=== PATIENT | female | born 1985 | race Asian ===

== ENCOUNTER 2017-11-08 14:06 | Emergency (ER) | payer OTHER ==
[~2017-11-08] VITALS: Ht 154.9 cm; Wt 51.3 kg
[~2017-11-08 14:06] MED LIST: MULT-506 PO
[2017-11-08 14:07] VITALS: TEMP 36.5; O2SAT 100; Ht 154.9 cm; Wt 51.3 kg
[2017-11-08] MEDS ORDERED: SODIUM CHLORIDE 0.9% 1000ML 1,000 ML IV STA (14:20)
[2017-11-08] MEDS ORDERED: KETOROLAC TROMETHAMINE 30 MG/ML VIAL IV STA (14:20)
[2017-11-08 14:29] LABS: BASO % 0.6 %; BASO ABS # 0.04 K/uL (0-0.2); EOS % 1.4 %; HEMOGLOBIN 14.6 g/dL (12.0-16.0); IG# 0.02 K/uL (0.00-0.02); LYMPH % 42.9 %; LYMPH ABS # 3.09 K/uL (1.2-3.4); MEAN CELL VOLUME 93.5 fL (80-100); MEAN CORPUSCULAR HEMOGLOBIN 32.5 pg (25-34); MEAN CORPUSCULAR HGB CONC 34.8 g/dl (32-36); MEAN PLATELET VOLUME 10.1 fL (7.4-10.4); MONO % 6.8 %; MONO ABS # 0.49 K/uL (0.11-0.59); NEUT ABS # 3.46 K/uL (1.4-6.5); PLATELET COUNT 281 K/uL (130-400); RED CELL DISTRIBUTION WIDTH CV 12.6 % (11.5-14.5); RED CELL DISTRIBUTION WIDTH SD 43.1 fL (36.4-46.3)
--- NOTE | 2017-11-08 14:29 | EMERGENCY ROOM VISIT NOTE ---
History Report prepared by Criss: Jp Barahona Under the Supervision of: Dr. Buzz Shafer M.D. First contact with patient: 14:11 Chief Complaint: CHEST PAIN Stated Complaint: U History of Present Illness The patient is a 32 year old female who presents to the Emergency Room with complaints of constant chest pain starting this morning around 0444 this morning. She states that she woke up around 0400 and was getting ready for work and got this chest pain which has constantly been there, and it is difficult to breathe due to the pain, and the pain is worsened with deep inspiration. She states that she has never had pain like this before. She denies any abdominal pain, back pain, fever, chills, cough, congestion, nausea, vomiting, diarrhea, burning with urination, headache, and dizziness. She additionally denies smoking , a history of PE, history of DVT, recent surgery, recent immobilization, family history of clotting in the lungs or legs, family history of vasculitis, history of Crohn's disease, history of anxiety, and any recent changes in medications. She notes that she had a stressful event a month ago, and she states that her father had an UT in his 50s, though he was a diabetic and smoker. She denies any history of GERD or gastritis. Source of History: patient Onset: 443 Position: chest Timing: constant Modifying Factors (Worsening): other (deep inspiration) Associated Symptoms: No fevers, No chills, No headache, No cough, No nausea , No vomiting, No abdominal pain, No back pain, No diarrhea Review of Systems See HPI for pertinent positives and negatives. A total of ten systems were reviewed and were otherwise negative. Family History FH: heart attack Social History Smoking Status: Never Smoker Marital Status: Housing Status: lives with family Occupation Status: employed Current/Historical Medications Scheduled Digestive Enzymes (Digestive Enzymes), 1 CAP PO DAILY Probiotic Product (Probiotic), 1 CAP PO QAM Allergies Coded Allergies: Sulfa Antibiotics (Verified Allergy, Severe, ANAPHYLAXIS, 11/08/17) FAMILY HISTORY OF Benzyl Alcohol (Verified Allergy, Intermediate, SWELLING OF FACE, FACIAL SORES, 04/05/16) Tazarotene (Verified Allergy, Intermediate, SWELLING OF FACE, FACIAL SORES , 04/05/16) Amoxicillin (Verified Allergy, Unknown, VOMIT, 04/05/16) Clavulanic Acid (Verified Allergy, Unknown, VOMIT, 04/05/16) Penicillins (Unverified Allergy, Unknown, VOMIT, 03/23/16) Oxycodone (Verified Adverse Reaction, Mild, NAUSEA AND VOMITING, 10/06/14) Physical Exam Vital Signs Date Time Temp Pulse Resp B/P (MAP) Pulse Ox O2 Delivery O2 Flow Rate FiO2 11/08/17 17:38 79 18 102/64 100 11/08/17 16:56 78 18 117/72 100 Room Air 11/08/17 15:21 82 20 108/71 100 Room Air 11/08/17 14:21 83 11/08/17 14:07 36.5 87 18 106/80 100 Room Air 11/08/17 14:07 100 Room Air 11/08/17 14:07 100 Room Air Physical Exam GENERAL: Awake, alert, anxious-appearing, in no distress HENT: Normocephalic, atraumatic. Dry mucous membranes otherwise oropharynx unremarkable. EYES: Normal conjunctiva. Sclera non-icteric. NECK: Supple. No nuchal rigidity. FROM. No JVD. RESPIRATORY: Clear to auscultation. CARDIAC: Regular rate, normal rhythm. Extremities warm and well perfused. Pulses equal. ABDOMEN: Soft, non-distended. No tenderness to palpation. No rebound or guarding. No masses. RECTAL: Deferred. MUSCULOSKELETAL: Mild reproducible anterior chest wall tenderness. The back is symmetrical on inspection without obvious abnormality. There is no CVA tenderness to palpation. No joint edema. LOWER EXTREMITIES: Calves are equal size bilaterally and non-tender. No edema. No discoloration. NEURO: Normal sensorium. No sensory or motor deficits noted. SKIN: No rash or jaundice noted. Medical Decision & Procedures ER Provider Diagnostic Interpretation: Radiology results as stated below per my review and radiologist interpretation: CHEST ONE VIEW PORTABLE CLINICAL HISTORY: 32 years-old Female presenting with CHEST PAIN. TECHNIQUE: Portable upright AP view of the chest was obtained. COMPARISON: None. FINDINGS: Cardiomediastinal silhouette normal. No focal opacity. No large effusion or pneumothorax. Osseous structures normal. Cholecystectomy clips noted. IMPRESSION: 1. No acute cardiopulmonary disease. Electronically signed by: Hiro Maria M.D. 11/08/2017 2:40 PM Dictated Date/Time: 11/08/2017 2:40 PM Laboratory Results 11/08/17 14:07 Red Blood Count 4.49, Mean Corpuscular Volume 93.5, Mean Corpuscular Hemoglobin 32.5, Mean Corpuscular Hemoglobin Concent 34.8, Mean Platelet Volume 10.1, Neutrophils (%) (Auto) 48.0, Lymphocytes (%) (Auto) 42.9, Monocytes (%) (Auto) 6.8, Eosinophils (%) (Auto) 1.4, Basophils (%) (Auto) 0.6, Neutrophils # (Auto) 3.46, Lymphocytes # (Auto) 3.09, Monocytes # (Auto) 0.49, Eosinophils # (Auto) 0.10, Basophils # (Auto) 0.04 11/08/17 14:07 Test 11/08/17 14:07 White Blood Count 7.20 K/uL (4.8-10.8) Red Blood Count 4.49 M/uL (4.2-5.4) Hemoglobin 14.6 g/dL (12.0-16.0) Hematocrit 42.0 % (37-47) Mean Corpuscular Volume 93.5 fL (80-100) Mean Corpuscular Hemoglobin 32.5 pg (25-34) Mean Corpuscular Hemoglobin Concent 34.8 g/dl (32-36) Platelet Count 281 K/uL (130-400) Mean Platelet Volume 10.1 fL (7.4-10.4) Neutrophils (%) (Auto) 48.0 % Lymphocytes (%) (Auto) 42.9 % Monocytes (%) (Auto) 6.8 % Eosinophils (%) (Auto) 1.4 % Basophils (%) (Auto) 0.6 % Neutrophils # (Auto) 3.46 K/uL (1.4-6.5) Lymphocytes # (Auto) 3.09 K/uL (1.2-3.4) Monocytes # (Auto) 0.49 K/uL (0.11-0.59) Eosinophils # (Auto) 0.10 K/uL (0-0.5) Basophils # (Auto) 0.04 K/uL (0-0.2) RDW Standard Deviation 43.1 fL (36.4-46.3) RDW Coefficient of Variation 12.6 % (11.5-14.5) Immature Granulocyte % (Auto) 0.3 % Immature Granulocyte # (Auto) 0.02 K/uL (0.00-0.02) D-Dimer 240 ug/L FEU (0-500) Anion Gap 8.0 mmol/L (3-11) Est Creatinine Clear Calc Drug Dose 83.1 ml/min Estimated GFR () 125.1 Estimated GFR (Non- 108.0 BUN/Creatinine Ratio 17.3 (10-20) Calcium Level 8.7 mg/dl (8.5-10.1) Total Bilirubin 0.3 mg/dl (0.2-1) Direct Bilirubin < 0.1 mg/dl (0-0.2) Aspartate Amino Transf (AST/SGOT) 26 U/L (15-37) Alanine Aminotransferase (ALT/SGPT) 34 U/L (12-78) Alkaline Phosphatase 73 U/L (45-117) Troponin I < 0.015 ng/ml (0-0.045) Total Protein 8.8 gm/dl (6.4-8.2) Albumin 4.4 gm/dl (3.4-5.0) Lipase 112 U/L (73-393) Human Chorionic Gonadotropin, Qual NEG (NEG) Laboratory results reviewed by me Medications Administered Medications (Trade) Dose Ordered Sig/Clive Route Start Time Stop Time Status Last Admin Dose Admin Sodium Chloride 1,000 ml @ 999 mls/hr Q1H1M STAT IV 11/08/17 14:20 11/08/17 15:20 DC 11/08/17 14:20 999 MLS/HR Ketorolac Tromethamine (Toradol Inj) 15 mg NOW STAT IV 11/08/17 14:20 11/08/17 14:23 DC 11/08/17 14:38 15 MG ECG Per My Interpretation Indication: chest pain Rate (beats per minute): 83 Rhythm: normal sinus Findings: no acute ischemic change, other (normal axis) ED Course 1411: The patient was evaluated in room A10. A complete history and physical exam was performed. 1547: I reevaluated the patient, and she feels the same, but she is going to follow up with her PCP. Beside ultrasound performed. Discussed results and discharge instructions: she verbalized understanding and agreement. The patient is ready for discharge. Medical Decision I reviewed the patient's past medical history, medications, and the nursing notes as described above. Differential diagnosis: Etiologies such as cardiac ischemia, aortic dissection, pulmonary embolism, pneumonia, pneumothorax, musculoskeletal, infections, pericarditis, myocarditis , esophageal rupture, gastrointestinal, as well as others were entertained. The patient is a 32-year-old woman who presents emergency department with chest pain since 4 AM this morning that has been constant with associated shortness of breath per hpi. On arrival the patient is fatigued but no acute distress, afebrile stable vital signs. Patient has mild reproducible anterior chest wall tenderness. EKG without evidence of acute ischemia. Troponin negative in the setting of greater than 6 hours of constant pain. Labs otherwise unremarkable. Heart score 1, low risk, acs unlikely. PERC negative PE not likely. Not positional, pericarditis not likely. No tearing pain and equal pulses, dissection not likely. Patient reports not feeling significantly improved after IV fluids and Toradol. Of note, she does not believe in "western medicine ". Does not want attempt antacid or GI cocktail. In particular I did discuss with the patient that per PERC rule a d-dimer is not indicated. However, if she had a significant concern for PE we could send this test which which is nonspecific but if elevated would require a CT scan of her chest. Patient expressed understanding and preferred to monitor symptoms for now. However, patient then changed her mind and requesting D-dimer, which was wnl. Patient will follow-up with her primary care doctor. Findings and plan for follow-up reviewed with patient. Patient agreeable and d/c'd per discharge instructions. Medication Reconcilliation Current Medication List: was personally reviewed by me Blood Pressure Screening Patient's blood pressure: Normal blood pressure Impression Primary Impression: Chest wall pain Scribe Attestation The scribe's documentation has been prepared under my direction and personally reviewed by me in its entirety. I confirm that the note above accurately reflects all work, treatment, procedures, and medical decision making performed by me. Departure Information Dispostion Home / Self-Care Referrals Marcos Bates M.D. (PCP) Forms Call Back Authorization, HOME CARE DOCUMENTATION FORM, IMPORTANT VISIT INFORMATION Patient Instructions ED Chest Pain Atypical Unkn Cause, ED Chest Pain Costochondritis, My [facility] Additional Instructions Please follow up with your primary care physician in the next 1-3 days for re- evaluation. The cause of your symptoms is unclear at this time but given its reproducibility with palpation this suggests likely muscular strain/ inflammation. Otherwise, your exam, EKG, chest xray, and lab results did not show signs of an emergent condition at this time. Acetaminophen or ibuprofen for pain and fevers as needed. Drink plenty of fluids to ensure hydration. Return to the emergency department for worsening symptoms as described in the accompanying instructions.
--- NOTE | 2017-11-08 14:42 | DIAGNOSTIC IMAGING REPORT ---
CHEST ONE VIEW PORTABLE CLINICAL HISTORY: 32 years-old Female presenting with CHEST PAIN. TECHNIQUE: Portable upright AP view of the chest was obtained. COMPARISON: None. FINDINGS: Cardiomediastinal silhouette normal. No focal opacity. No large effusion or pneumothorax. Osseous structures normal. Cholecystectomy clips noted. IMPRESSION: 1. No acute cardiopulmonary disease. Electronically signed by: Hiro Maria M.D. 11/08/2017 2:40 PM Dictated Date/Time: 11/08/2017 2:40 PM
[2017-11-08 14:51] LABS: ALBUMIN 4.4 gm/dl (3.4-5.0); ALT/SGPT 34 U/L (12-78); AST/SGOT 26 U/L (15-37); BLOOD UREA NITROGEN 13 mg/dl (7-18); CALCIUM 8.7 mg/dl (8.5-10.1); CARBON DIOXIDE 26 mmol/L (21-32); CREATININE 0.74 mg/dl (0.60-1.20); GLUCOSE 92 mg/dl (70-99); LIPASE 112 U/L (73-393); POTASSIUM 3.4 mmol/L (3.5-5.1); SODIUM 137 mmol/L (136-145)
[2017-11-08 14:57] LABS: ALKALINE PHOSPHATASE 73 U/L (45-117); TOTAL PROTEIN 8.8 gm/dl (6.4-8.2)
[2017-11-08] MEDS ORDERED: DIGE1CAP7 PO (15:07)
[2017-11-08] MEDS ORDERED: MISCCAP80 PO (15:11)
[2017-11-08 17:38] VITALS: BP 102/64; PULSE 79; O2SAT 100
== END 2017-11-08 17:41 | disposition home or self-care (01) ==
LOC: EDBD 14:06 → EDSEX 14:06 → C.EDA 14:11
DX: R07.89 Other chest pain (principal); Z82.49 Family history of ischemic heart disease and other diseases of the circulatory system; Z83.3 Family history of diabetes mellitus; Z79.899 Other long term (current) drug therapy; Z88.2 Allergy status to sulfonamides; Z88.8 Allergy status to other drugs, medicaments and biological substances; Z88.0 Allergy status to penicillin; Z88.5 Allergy status to narcotic agent